=== PATIENT | male | born 1990 | race Caucasian/White ===

== ENCOUNTER 2022-01-02 19:55 | Emergency (ER) | payer OTHER ==
[~2022-01-02] VITALS: Ht 180.3 cm; Wt 79.4 kg
[2022-01-02] MEDS ORDERED: LIDO700A20 TOP (21:41)
[2022-01-02] MEDS ORDERED: Robaxin750 MG PO (21:41)
== END 2022-01-02 22:17 | disposition home or self-care (01) ==
LOC: ER 19:55
DX: S29.012A Strain of muscle and tendon of back wall of thorax, initial encounter (principal); M62.830 Muscle spasm of back; F17.200 Nicotine dependence, unspecified, uncomplicated; X58.XXXA Exposure to other specified factors, initial encounter
CPT/HCPCS: A9270; J1885